=== PATIENT | male | born 1980 | race Two or more races ===

== ENCOUNTER 2020-08-27 16:57 | Emergency (ER) | payer MEDICAID ==
[~2020-08-27] VITALS: Ht 172.7 cm; Wt 95.3 kg
[2020-08-27] MEDS ORDERED: Tetanus/Diptheria/Pertussis IM ONE (17:15)
--- NOTE | 2020-08-27 17:25 | NUR ---
pt arrives to ER with complaints of finger laceration on right index finger. bleeding is controlled.
[2020-08-27 17:26] VITALS: BP 160/102
--- NOTE | 2020-08-27 17:56 | Emergency Room Report ---
History of Present Illness General Chief Complaint: Laceration Source: Patient Present Illness HPI 39-year-old male presents to the emergency department complaining of laceration to the right index finger x1 day. He reports 7/10 in severity pain. Patient reports he was working on his car and his finger slipped and hit a piece of aluminum metal that slicing his finger open. Patient reports some bleeding at th is time he denies bright red blood and reports oozing dark red blood. Patient is not sure when his last tetanus vaccination was. He is right-hand dominant. Patient denies paresthesias or loss of gross motor movements. Patient denies suspicion of foreign body. He denies suspicion of fractures. He denies taking blood thinning medications. No other aggravating relieving factors at this time. Allergies: Coded Allergies: No Known Allergies (Unverified , 08/27/20) COVID-19 Screening Contact w/high risk pt: No Experienced COVID-19 symptoms?: No COVID-19 Testing performed FINISHING PAN OPERATOR: No Patient History Past Medical History: see triage record Past Surgical History: none Pertinent Family History: none Reviewed Nursing Documentation: PMH: Agreed; PSxH: Agreed Nursing Documentation-PMH Hx Cardiac Problems: No Hx Hypertension: No Hx Pacemaker: No Hx Asthma: No Hx COPD: No Hx Diabetes: No Hx Cancer: No Hx Gastrointestinal Problems: No Hx Dialysis: No History Of Psychiatric Problem: No Hx Neurological Problems: No Hx Cerebrovascular Accident: No Hx Seizures: No Review of Systems All Other Systems: negative except mentioned in HPI Physical Exam Vital Signs Date Time Temp Pulse Resp B/P (MAP) Pulse Ox O2 Delivery O2 Flow Rate FiO2 08/27/20 17:03 98.8 73 18 160/102 (121) 98 Room Air Sp02 EP Interpretation: reviewed, normal General Appearance: no apparent distress, alert, GCS 15, non-toxic Head: normocephalic, atraumatic Eyes: bilateral eye normal inspection, bilateral eye PERRL ENT: hearing grossly normal, normal voice Neck: full range of motion Respiratory: chest non-tender, lungs clear, normal breath sounds, speaking full sentences Cardiovascular #1: regular rate, rhythm, normal capillary refill Musculoskeletal: normal range of motion, gait/station normal, non-tender Neurologic: alert, motor strength/tone normal, oriented x3, sensory intact, responsive, speech normal, grossly normal, no focal defects Psychiatric: judgement/insight normal Skin: laceration - 1 cm laceration to the dorsum of the right index finger down to 16 he is fat. No evidence of tendon involvement. Full range of motion. Normal muscle tone Procedures Laceration/Wound Repair Laceration/Wound Repair : Consent: Verbal Wound Location: upper extremity - right index finger Wound's Depth, Shape: linear Wound Length (cm): 1 Wound Explored: contaminated Irrigated w/ Saline (ccs): 100 Anesthesia: 1% Lidocaine Volume Anesthetic (ccs): 3 Wound Repaired With: sutures Suture Size/Type: 4:0 Number of Sutures: 2 Layer Closure?: No Sterile Dressing Applied?: Yes Splint Applied?: Yes Type of Splint Applied: right index finger splint Sling Applied?: No Patient Tolerated: Well Complications: None Medical Decision Making PA Attestation Dr. Mccormick Is my supervising Physician whom patient management has been discussed with. Diagnostic Impression: Primary Impression: Laceration ER Course Pt. presents to the ED c/o laceration to Right index finger x 1 day. tetanus not UTD. bleeding controlled. Ddx considered but are not limited to laceration, tendon injury, cellulitis, amputation Vital signs: are WNL, pt. is afebrile H&PE are most consistent with: Right laceration approx 1 cm in length- extensor surface. ORDERS: none required at this time, the diagnosis is clinical ED INTERVENTIONS: -Tylenol # 3 PO -Tetanus vaccine was administered as pt. vaccination status was unknown. - The wound was copiously irrigated with normal saline, and explored for foreign body for which no FB was found. - pt. is anesthetized with 1%lidocaine plain - The wound was approximated and closed using 2 interrupted 4.0 Ethilon sutures. -Bacitracin and sterile dressing is applied. Finger splint applied to the right index finger by chemistry laboratory technician. Pt. remains neurovascularly intact. Discussed with patient: That we make every effort to approximate the laceration as best as we can so that scarring will be as cosmetically pleasing as possible with our limited cosmetic skill set in the Emergency dept. Regardless of our best efforts there will be scarring after laceration repair. The extent of scarring is unknown at this time. DISCHARGE: At this time pt. is stable for d/c to home. Will provide printed patient care instructions, and any necessary prescriptions. Care plan and follow up instructions have been discussed with the patient prior to discharge. Last Vital Signs Date Time Temp Pulse Resp B/P (MAP) Pulse Ox O2 Delivery O2 Flow Rate FiO2 08/27/20 17:26 98.8 18 160/102 98 Room Air 08/27/20 17:03 73 Status: improved Disposition: HOME, SELF-CARE Condition: Stable Scripts Bacitracin (Bacitracin) 28.4 Gm Oint...g. 1 APPLIC TOPIC THREE TIMES A DAY, #28.5 GM Prov: Yue Haq 08/27/20 Cephalexin* (KEFLEX*) 500 Mg Capsule 500 MG ORAL EVERY 12 HOURS for 7 Days, #14 CAP 0 Refills Prov: Yue Haq 08/27/20 Referrals: NOT CHOSEN IPA/,REFERRING (PCP) Dustin [facility]. [facility] Patient Instructions: Laceration Care, Adult Additional Instructions: Sutures are to be removed within 10 to 14 days. Keep splint on. Keep affected area clean and dry. Please note that this emergency department as well as the hospital will be officially closed permanently. In 1 week on September 05, 2020. Please familiarize yourself with the next closest emergency department should you later unexpectedly suffer an emergency and want to seek medical care !!!!! Take medications as directed. Follow up with a Primary Care Provider in 3-5 days, even if your symptoms have resolved. --Please review list of primary care clinics, if you do not already have a primary care provider Return sooner to ED if new symptoms occur, or current symptoms become worse. - Please note that this Emergency Department Report was dictated using [employer] crane operator technology software, occasionally this can lead to erroneous entry secondary to interpretation by the dictation equipment. Yue Haq Aug 27, 2020 17:56
[2020-08-27] MEDS ORDERED: BACITRACIN15 GM TOPIC (17:57)
[2020-08-27] MEDS ORDERED: CEPHALEXIN500 MG ORAL (17:57)
--- NOTE | 2020-08-27 18:12 | NUR ---
wound care complete
[2020-08-27] MEDS ORDERED: Tylenol #3 tab (300mg/30mg) ORAL ONE (18:15)
== END 2020-08-27 18:15 ==
LOC: EMR 17:23
DX: S61.210A Laceration without foreign body of right index finger without damage to nail, initial encounter (principal); Z23 Encounter for immunization; W26.9XXA Contact with unspecified sharp object(s), initial encounter; Y92.9 Unspecified place or not applicable
CPT/HCPCS: 12001; 90471; 90715; Z7502; 99282